=== PATIENT | male | born 1970 | race Hispanic/Latino ===

== ENCOUNTER 2020-01-29 14:27 | Inpatient (IN) | payer SELFPAY ==
[2020-01-29 15:12] LABS: Absolute Lymphocytes (CBC) 1.6 K/uL (0.7-4.9); Basophils % 0.4 % (0-1.3); Hematocrit 49.8 % (39.6-49.0); Lymphocytes % 10.1 % (15.3-44.8); MPV 8.7 fL (7.6-11.3); RBC Red Blood Cell Count 5.85 M/uL (4.33-5.43)
[2020-01-29] MEDS ORDERED: ONDANSETRON 4 MG/2 ML VIAL ONE ×2 (15:17→19:24)
[2020-01-29] MEDS ORDERED: MORPHINE 2 MG/ML SYR ONE (15:17)
[2020-01-29] MEDS ORDERED: NA CHLORIDE 0.9% 1,000 ML ONE (15:17)
[2020-01-29 15:26] LABS: ALT/SGPT 34 U/L (12-78); AST/SGOT 11 U/L (15-37); Albumin 3.8 g/dL (3.4-5.0); Alkaline Phosphatase 102 U/L (45-117); BUN Blood Urea Nitrogen 14 mg/dL (7-18); Bicarbonate 26 mmol/L (21-32); Bilirubin Direct 0.3 mg/dL (0-0.2); Bilirubin Total 1.2 mg/dL (0.2-1.0); Glucose Level 123 mg/dL (74-106); Lipase 49 U/L (73-393); Potassium 3.6 mmol/L (3.5-5.1); Sodium Level 137 mmol/L (136-145)
--- NOTE | 2020-01-29 15:56 | RAD REPORT ---
EXAM DESCRIPTION: RAD - Chest Single View - 01/29/2020 3:05 pm CLINICAL HISTORY: ABDOMINAL DISTENTION Chest pain. COMPARISON: No comparisons FINDINGS: Portable technique limits examination quality. The lungs are grossly clear. The heart is normal in size. No displaced fractures. IMPRESSION: No acute intrathoracic process suspected.
--- NOTE | 2020-01-29 16:06 | RAD REPORT ---
EXAM DESCRIPTION: CTAbdomen Pelvis W Contrast - 01/29/2020 3:44 pm CLINICAL HISTORY: Abdominal pain. ABD PAIN COMPARISON: No comparisons TECHNIQUE: Biphasic CT imaging of the abdomen and pelvis was performed with 100 ml non-ionic IV cont rast. All CT scans are performed using dose optimization technique as appropriate and may include automated exposure control or mA/KV adjustment according to patient size. FINDINGS: The lung bases are clear. The liver, spleen, pancreas, adrenal glands and kidneys are within normal limits. Multiple dilated fluid-filled small bowel loops are present in the abdomen. Clearly defined appendix is not seen. There is a tubular like structure containing air in the right lower quadrant with surro unding inflammatory changes. Assessment is somewhat limited by the lack of oral contrast material. No evidence of significant lymphadenopathy. No suspicious bony findings. IMPRESSION: Inflammatory changes in the right lower quadrant are seen suggesting perforated appendic itis with secondary ileus of small bowel loops. Recommend correlation with clinical exam findings in the right lower quadrant region.
--- NOTE | 2020-01-29 16:16 | ER ---
Nurse's Notes [facility] Name: Laureano Levin Age: 49 yrs Sex: Male : 1970 Arrival Date: 01/29/2020 Time: 14:32 Bed 18 Private MD: Diagnosis: Abdominal tenderness;Acute appendicitis with generalized peritonitis-perforated per CT;Ileus, unspecified Presentation: 01/28 14:40 Chief complaint: Patient states: Abdominal pain with N/V for 2 days. Sent by [address] H. Pylori test was positive. + dysuria. No fever. Coronavirus screen: Proceed with normal triage. Patient denies a cough. Patient denies shortness of breath or difficulty breathing. Patient denies measured and/or subjective temperature greater than 100.4F prior to today's visit. Patient denies travel on a cruise ship or to a country the [facility] [place]NOTE 2[place] currently lists as an affected area. Patient denies contact with known and/or suspected case of COVID-19. Ebola Screen: Patient denies travel to an Ebola-affected area in the 21 days before illness onset. Initial Sepsis Screen: Does the patient meet any 2 criteria? No. Patient's initial sepsis screen is negative. Does the patient have a suspected source of infection? No. Patient's initial sepsis screen is negative. Risk Assessment: Do you want to hurt yourself or someone else? Patient reports no desire to harm self or others. Onset of symptoms was January 28, 2020. 14:40 Method Of Arrival: Ambulatory [facility] 14:40 Acuity: MARIA R 3 ll1 Historical: - Allergies: 14:41 No Known Allergies; 1 - PMHx: 14:41 None; 1 - PSHx: 14:41 None; 1 - Social history:: Smoking status: Patient/guardian denies using tobacco, the patient reports quitting approximately 10 years ago, Patient/guardian denies using alcohol, the patient reports quitting approximately [address], [address] drugs. - Family history:: not pertinent. Screenin:08 Abuse screen: Denies threats or abuse. Nutritional screening: No deficits noted. Tuberculosis screening: No symptoms or risk factors identified. Fall Risk None identified. Assessment: 15:00 General: Appears in no apparent distress. Behavior is calm, cooperative. Pain: Complains of pain in abdomen Pain does not radiate. Pain Quality of pain is described as tender, Pain began 1 day ago. Is continuous, Alleviated by nothing. Neuro: Level of Consciousness is awake, Oriented to person, place, time, situation. Cardiovascular: Heart tones S1 S2 present Capillary refill < 3 seconds Patient's skin is warm and dry. Respiratory: Airway is patent Respiratory effort is even, unlabored, Respiratory pattern is regular, symmetrical, Breath sounds are clear bilaterally. GI: Bowel sounds present X 4 quads. Abdomen is tender to palpation X 4 quads. Reports nausea, vomiting. : No signs and/or symptoms were reported regarding the genitourinary system. EENT: No signs and/or symptoms were reported regarding the EENT system. Derm: No signs and/or symptoms reported regarding the dermatologic system. Musculoskeletal: No signs and/or symptoms reported regarding the musculoskeletal system. 15:52 Reassessment: Returned from CT. 16:00 Reassessment: Pt lying in bed resting at this time awaiting results from radiology and lab. No needs voiced at this time. 16:40 Reassessment: Dr Rodriguez in room visiting Pt and explaining procedure. 17:20 Reassessment: RN in room explaining procedure and having pt sign consent. Report given ah to OR nurse and pt being admitted to OR. Vital Signs: 14:40 BP 134 / 86; Pulse 89; Resp 18; Temp 98.3; Pulse Ox 97% ; Pain 6/10; ll1 15:00 BP 121 / 78; Pulse 93; Resp 18; Pulse Ox 97% ; ah 15:30 BP 122 / 78; Pulse 81; Resp 18; Pulse Ox 98% ; ah 17:04 BP 118 / 81; Pulse 88; Resp 17; Temp 99.2; Pulse Ox 98% ; ah ED Course: 14:32 Patient arrived in ED. mr 14:32 Berny Molina MD is Attending Physician. [facility] 14:41 Triage completed. ll1 14:42 Arm band placed on Patient placed in an exam room, on a stretcher. ll1 15:00 Initial lab(s) drawn, by la, sent to lab. X-ray(s) taken. Inserted saline lock: 20 jp3 gauge in right antecubital area, using aseptic technique. Blood collected. Patient maintains SpO2 saturation greater than 95% on room air. 15:06 Chest Single View XRAY In Process Unspecified. EDMS 15:06 Merissa Parson, RN is Primary Nurse. 15:[address] via stretcher. 15:45 CT Abd/Pelvis - IV Contrast Only In Process Unspecified. EDNE 16:14 Rafa Yuen MD is Hospitalizing Provider. [facility] 16:15 Patient has correct armband on for positive identification. Placed in gown. Bed in low ah position. Call light in reach. 16:15 Patient admitted, IV remains in place. 16:36 Ruth Lorenz MD is Hospitalizing Provider. [facility] 22:49 No provider procedures requiring assistance completed. Administered Medications: 15:15 Drug: NS 0.9% 1000 ml Route: IV; Rate: 1 bolus; Site: right antecubital; 16:15 Follow up: Response: No adverse reaction; IV Status: Completed infusion 15:15 Drug: morphine 2 mg Route: IVP; Site: right antecubital; ah 17:22 Follow up: Response: No adverse reaction 15:15 Drug: Zofran (Ondansetron) 4 mg Route: IVP; Site: right antecubital; 17:21 Follow up: Response: No adverse reaction 16:54 Drug: Zosyn 3.375 grams Route: IVPB; Infused Over: 60 mins; Site: right antecubital; 17:21 Follow up: Response: No adverse reaction; IV Status: Infusion continued upon transfer Outcome: 16:15 Decision to Hospitalize by Provider. [facility] 16:15 Admitted to OR accompanied by nurse, via stretcher, with chart. 16:15 Condition: stable 16:15 Instructed on the need for transfer. 17:28 Patient left the ED. Signatures: Dispatcher [employer] EDNE Berny Molina MD MD cha Rivera, Mary mr Bettina Watson RN RN Philipp Posada jp3 Merissa Parson, RN RN Cony Guaman RN RN ll1
--- NOTE | 2020-01-29 16:16 | EDPHYS ---
Physician Documentation [facility] Name: Laureano Levin Age: 49 yrs Sex: Male : 1970 Arrival Date: 01/29/2020 Time: 14:32 Bed 18 Private MD: JENISE Physician Berny Molina HPI: 01/28 14:52 This 49 yrs old Male presents to ER via Ambulatory with complaints of laura Abdominal Pain. 14:52 The patient presents with abdominal pain in the upper abdomen, in the lower abdomen, laura abdominal distention in the upper abdomen, in the lower abdomen. Onset: The symptoms/episode began/occurred 1 day(s) ago. The symptoms do not radiate. Associated signs and symptoms: Pertinent positives: diarrhea. The symptoms are described as constant. Modifying factors: The symptoms are alleviated by nothing, the symptoms are aggravated by nothing. Severity of pain: At its worst the pain was moderate in the emergency department the pain is actually worse moderately. The patient has not experienced similar symptoms in the past. Historical: - Allergies: 14:41 No Known Allergies; ll1 - PMHx: 14:41 None; ll1 - PSHx: 14:41 None; ll1 - Social history:: Smoking status: Patient/guardian denies using tobacco, the patient reports quitting approximately 10 years ago, Patient/guardian denies using alcohol, the patient reports quitting approximately [address], [address] drugs. - Family history:: not pertinent. ROS: 14:52 Constitutional: Negative for fever, chills, and weight loss, Eyes: Negative for injury, laura pain, redness, and discharge, ENT: Negative for injury, pain, and discharge, Neck: Negative for injury, pain, and swelling, Cardiovascular: Negative for chest pain, palpitations, and edema, Respiratory: Negative for shortness of breath, cough, wheezing, and pleuritic chest pain, Back: Negative for injury and pain, : Negative for injury, bleeding, discharge, and swelling, MS/Extremity: Negative for injury and deformity, Skin: Negative for injury, rash, and discoloration, Neuro: Negative for headache, weakness, numbness, tingling, and seizure, Psych: Negative for depression, anxiety, suicide ideation, homicidal ideation, and hallucinations, Allergy/Immunology: Negative for hives, rash, and allergies, Endocrine: Negative for neck swelling, polydipsia, polyuria, polyphagia, and marked weight changes, Hematologic/Lymphatic: Negative for swollen nodes, abnormal bleeding, and unusual bruising. 14:52 Abdomen/GI: Positive for abdominal pain, diarrhea, of the right upper quadrant, left upper quadrant, right lower quadrant and left lower quadrant. Exam: 14:52 Constitutional: This is a well developed, well nourished patient who is awake, alert, laura and in no acute distress. Head/Face: Normocephalic, atraumatic. Eyes: Pupils equal round and reactive to light, extra-ocular motions intact. Lids and lashes normal. Conjunctiva and sclera are non-icteric and not injected. Cornea within normal limits. Periorbital areas with no swelling, redness, or edema. ENT: Nares patent. No nasal discharge, no septal abnormalities noted. Tympanic membranes are normal and external auditory canals are clear. Oropharynx with no redness, swelling, or masses, exudates, or evidence of obstruction, uvula midline. Mucous membranes moist. Neck: Trachea midline, no thyromegaly or masses palpated, and no cervical lymphadenopathy. Supple, full range of motion without nuchal rigidity, or vertebral point tenderness. No Meningismus. Chest/axilla: Normal chest wall appearance and motion. Nontender with no deformity. No lesions are appreciated. Cardiovascular: Regular rate and rhythm with a normal S1 and S2. No gallops, murmurs, or rubs. Normal PMI, no JVD. No pulse deficits. Respiratory: Lungs have equal breath sounds bilaterally, clear to auscultation and percussion. No rales, rhonchi or wheezes noted. No increased work of breathing, no retractions or nasal flaring. Back: No spinal tenderness. No costovertebral tenderness. Full range of motion. Male : Normal genitalia with no discharge or lesions. Skin: Warm, dry with normal turgor. Normal color with no rashes, no lesions, and no evidence of cellulitis. MS/ Extremity: Pulses equal, no cyanosis. Neurovascular intact. Full, normal range of motion. Neuro: Awake and alert, GCS 15, oriented to person, place, time, and situation. Cranial nerves II-XII grossly intact. Motor strength 5/5 in all extremities. Sensory grossly intact. Cerebellar exam normal. Normal gait. Psych: Awake, alert, with orientation to person, place and time. Behavior, mood, and affect are within normal limits. 14:52 Abdomen/GI: Inspection: abdomen appears normal, Bowel sounds: normal, Palpation: moderate abdominal tenderness, in all quadrants, Liver: no appreciated palpable abnormalities, Hernia: not appreciated. Vital Signs: 14:40 BP 134 / 86; Pulse 89; Resp 18; Temp 98.3; Pulse Ox 97% ; Pain 6/10; ll1 15:00 BP 121 / 78; Pulse 93; Resp 18; Pulse Ox 97% ; ah 15:30 BP 122 / 78; Pulse 81; Resp 18; Pulse Ox 98% ; ah 17:04 BP 118 / 81; Pulse 88; Resp 17; Temp 99.2; Pulse Ox 98% ; ah MDM: 14:34 Patient medically screened. [facility] 14:56 Data reviewed: vital signs, nurses notes, lab test result(s), EKG, radiologic studies, laura CT scan, plain films. 15:17 Differential diagnosis: appendicitis, bowel obstruction, diverticulitis, non-specific laura abd pain, pancreatitis, Perf. Duodenal Ulcer, Peritonitis. Data interpreted: satellite project site monitor: rate is 89 beats/min. Test interpretation: by ED physician or midlevel provider: ECG, plain radiologic studies, ct abd pelvis. Counseling: I had a detailed discussion with the patient and/or guardian regarding: the historical points, exam findings, and any diagnostic results supporting the discharge/admit diagnosis, lab results, radiology results. ED course: pt presented abd pain, acute abdomen, positive guarding , suspicios for appedicitis. 01/28 14:50 Order name: Basic Metabolic Panel; Complete Time: 15: [facility] 01/28 14:50 Order name: CBC with Diff; Complete Time: 15: laura 01/28 14:50 Order name: Creatinine for Radiology; Complete Time: 15:26 [facility] 01/28 14:50 Order name: Hepatic Function; Complete Time: 15: laura 01/28 14:50 Order name: Lipase; Complete Time: 15: [facility] 01/28 14:50 Order name: Chest Single View XRAY; Complete Time: 15:58 01/28 14:50 Order name: IV Saline Lock; Complete Time: 15:01/28 14:50 Order name: Labs collected and sent; Complete Time: 15:01 [facility] 01/28 14:50 Order name: EKG; Complete Time: 14:51 [facility] 01/28 14:50 Order name: CT Abd/Pelvis - IV Contrast Only; Complete Time: 16:40 [facility] 01/28 14:50 Order name: EKG - Nurse/Tech; Complete Time: 17:22 [facility] 01/28 16:13 Order name: NPO; Complete Time: 17:22 [facility] Administered Medications: 15:15 Drug: NS 0.9% 1000 ml Route: IV; Rate: 1 bolus; Site: right antecubital; 16:15 Follow up: Response: No adverse reaction; IV Status: Completed infusion 15:15 Drug: morphine 2 mg Route: IVP; Site: right antecubital; 17:22 Follow up: Response: No adverse reaction 15:15 Drug: Zofran (Ondansetron) 4 mg Route: IVP; Site: right antecubital; 17:21 Follow up: Response: No adverse reaction 16:54 Drug: Zosyn 3.375 grams Route: IVPB; Infused Over: 60 mins; Site: right antecubital; 17:21 Follow up: Response: No adverse reaction; IV Status: Infusion continued upon transfer Disposition: 01/29/20 16:15 Hospitalization ordered by Ruth Lorenz for Observation. Preliminary diagnosis are Abdominal tenderness, Acute appendicitis with generalized peritonitis - perforated per CT, Ileus, unspecified. - Bed requested for Telemetry/MedSurg (observation). - Status is Observation. - Condition is Stable. - Problem is new. - Symptoms have improved. Signatures: Dispatcher [employer] EDVT Berny Molina MD MD cha Baxter, Heather RN RN Merissa Parson, RN RN Cony Guaman, RN RN ll1 Corrections: (The following items were deleted from the chart) 16:36 16:15 Hospitalization Ordered by Rafa Yuen MD for Observation. Preliminary diagnosis laura is Abdominal tenderness; Acute appendicitis with generalized peritonitis - perforated per CT; Ileus, unspecified. Bed requested for Telemetry/MedSurg (observation). Status is Observation. Condition is Stable. Problem is new. Symptoms have improved. [facility] 17:28 16:36 01/29/2020 16:15 Hospitalization Ordered by Ruth Lorenz MD for Observation. Preliminary diagnosis is Abdominal tenderness; Acute appendicitis with generalized peritonitis - perforated per CT; Ileus, unspecified. Bed requested for Telemetry/MedSurg (observation). Status is Observation. Condition is Stable. Problem is new. Symptoms have improved. laura
[2020-01-29] MEDS ORDERED: PIPER/TAZO/NS 3.375gm 3.375 GM/100 ML BAG ONE (16:48)
[2020-01-29] MEDS ORDERED: BUPIVACA 0.25%/EPI 0.0005%/PF 30 ML VIAL ONE (16:59)
[2020-01-29] MEDS ORDERED: Ringers Lactate 1,000 ML IV ONE (17:39)
[2020-01-29] MEDS ORDERED: SUCCINYLCHOLINE 20 MG/ML (10 ML) IV ONE (17:49)
[2020-01-29] MEDS ORDERED: MIDAZOLAM HCL 2 MG/2 ML INJ ONE (17:51)
[2020-01-29] MEDS ORDERED: propofoL 200 MG/20 ML VIAL IV ONE (17:51)
[2020-01-29] MEDS ORDERED: FENTANYL CITR 100 MCG/2 ML ONE (17:51)
[2020-01-29] MEDS ORDERED: ROCURONIUM 50 MG/5 ML VIAL IV ONE (17:51)
[2020-01-29] MEDS: PIPER/TAZO/NS 3.375gm 3.375 GM/100 ML BAG IVPB SCH (18:04)
[2020-01-29] MEDS ORDERED: ALBUTEROL 2.5 MG/3 ML NEB SOL NEB PRN (18:25)
[2020-01-29] MEDS ORDERED: HYDRALAZINE HCL 20 MG/ML VIAL IV PRN (18:25)
--- NOTE | 2020-01-29 18:25 | P.HP ---
Certification for Inpatient With expected LOS: >2 Midnights Patient will require the following post-hospital care: None Practitioner: I am a practitioner with admitting privileges, knowledge of patient current condition, hospital course, and medical plan of care. Services: Services provided to patient in accordance with Admission requirements found in Title 42 Section 412.3 of the Code of Federal Regulations Patient History Date of Service: 01/29/20 Reason for admission: Abdominal pain History of Present Illness: 49-year-old speaking male with past medical history of hypertension, diabetes mellitus, and hyperlipidemia, admitted because of 3 day history of intermittent abdominal pain, worsening since the last 2 days, associated with nausea but no vomiting or loss of appetite. Patient presented to the ED be today because of persistent pain. On presentation he had a CT scan of the abdomen done with finding of perforated appendicitis. Surgery has been consult ed. Patient is being taking to the OR. Patient was seen in the ED and the presence of surgery via nurse cephalometric technician. He denies every other symptoms. He denies any fever or chills. Allergies No Known Allergies Allergy (Unverified 01/29/20 17:59) Home medications list reviewed: No - Past Medical/Surgical History Has patient received pneumonia vaccine in the past: No Diabetic: Yes -: Hypertension -: Diabetes mellitus - Family History Family History: Reviewed- Non-Contributory - Social History Smoking Status: Unknown if ever smoked Counseled patient to stop smoking for: less than 10 minutes Alcohol use: No CD- Drugs: No Caffeine use: No Place of Residence: Home Review of Systems 10-point ROS is otherwise unremarkable Physical Examination - Physical Exam General: Alert, In no apparent distress, Oriented x3 HEENT: Atraumatic, Normocephalic, PERRLA Neck: Supple, 2+ carotid pulse no bruit, JVD not distended Respiratory: Clear to auscultation bilaterally, Normal air movement Cardiovascular: Normal pulses, Regular rate/rhythm, Normal S1 S2 Capillary refill: <2 Seconds Gastrointestinal: Non-distended, W/out hepatosplenomegaly, Tenderness, Rebound Musculoskeletal: No clubbing, No swelling Neurological: Normal speech, Normal strength at 5/5 x4 extr, Normal tone - Studies Laboratory Data (last 24 hrs) 01/29/20 14:58: Creatinine 0.75 01/29/20 14:58: WBC 15.7 H, Hgb 16.4, Hct 49.8 H, Plt Count 260 01/29/20 14:58: Sodium 137, Potassium 3.6, BUN 14, Creatinine 0.76, Glucose 123 H, Total Bilirubin 1.2 H, AST 11 L, ALT 34, Alkaline Phosphatase 102, Lipase 49 L Imagings Data: CTAbdomen Pelvis W Contrast - 01/29/2020 3:44 pm CLINICAL HISTORY: Abdominal pain. ABD PAIN COMPARISON: No comparisons TECHNIQUE: Biphasic CT imaging of the abdomen and pelvis was performed with 100 ml non-ionic IV contrast. All CT scans are performed using dose optimization technique as appropriate and may include automated exposure control or mA/KV adjustment according to patient size. FINDINGS: The lung bases are clear. The liver, spleen, pancreas, adrenal glands and kidneys are within normal limits. Multiple dilated fluid-filled small bowel loops are present in the abdomen. Clearly defined appendix is not seen. There is a tubular like structure containing air in the right lower quadrant with surrounding inflammatory changes. Assessment is somewhat limited by the lack of oral contrast material. No evidence of significant lymphadenopathy. No suspicious bony findings. IMPRESSION: Inflammatory changes in the right lower quadrant are seen suggesting perforated appendicitis with secondary ileus of small bowel loops. Recommend correlation with clinical exam findings in the right lower quadrant region Assessment and Plan - Problems (Diagnosis) (1) Acute perforated appendicitis Current Visit: Yes Status: Acute (2) Hypertension Current Visit: Yes Status: Acute (3) Diabetes mellitus Current Visit: Yes Status: Acute - Advance Directives Does patient have a Living Will: No Does patient have a Durable POA for Healthcare: No Physician Review: Patient Assessed, Agree with Above Assessment and Plan Physician Review Additional Text: Perforated appendicitis-follow emergency surgical appendectomy -follow planned abdominal washout post appendectomy -surgery discuss with. -will start empirical antibiotics with Zosyn -gentle IV fluid hydration -obtain blood culture Hypertension-will do IV hydralazine p.r.n., resume home meds when able to start p.o. Diabetes mellitus-will do Accu-Cheks Q 6 for now -start gentle IV fluid with lactated Ringer's to D5 LR if hypoglycemia -do insulin sliding scale next DVT prophylaxis subcutaneous Lovenox post surgery Advanced directive- discussed patient is full code Time Spent Managing Pts Care (In Minutes): 65
[2020-01-29] MEDS ORDERED: NEOSTIGMINE 1 MG/ML -5 ML ONE (18:42)
[2020-01-29] MEDS ORDERED: GLYCOPYRROLATE 0.2 MG/ML SYR ONE (18:42)
--- NOTE | 2020-01-29 18:49 | P.OP ---
Preoperative diagnosis: Perforated Appendicitis Postoperative diagnosis: Perforated Appendicitis Primary procedure: Laparoscopic Appendectomy Anesthesia: GETA + Local Estimated blood loss: < 10cc Specimen: Vermiform Appendix Findings: Microperforated Appendicitis Complications: None Transferred to: Recovery Room Condition: Good
[2020-01-29] MEDS: HYDROMORPHONE HCL 1 MG/ML INJ ONE ×2 (19:23→19:28)
[2020-01-29] MEDS ORDERED: KETOROLAC 30 MG/ML INJ ONE (19:24)
[2020-01-29] MEDS ORDERED: PROMETHAZINE INJ 25 MG/ML AMP ONE (19:29)
[2020-01-29] MEDS: D5 0.45 NS 1,000 ML IV SCH (20:25)
[2020-01-29] MEDS: ENOXAPARIN 40 MG/0.4 ML SQ SCH (21:00)
[2020-01-29] MEDS: INSULIN -REGULAR HUMAN 50 UNIT/0.5 ML ML SQ SCH (21:00)
--- NOTE | 2020-01-29 21:07 | CON ---
Date of Consultation: 01/29/2020 Brief History Of Present Illness: Patient is a 49-year-old male who presents with periumbil ical pain beginning approximately yesterday, now localized to the right lower quadrant. He has had s ome nausea, no vomiting. The pain got significantly worse over the course of the day. He has not moreno d similar episodes before in the past. No sick contacts. No recent travel. No new food exposures t hat he is aware. Past Medical History: Significant for back pain. Past Surgical History: Denies. Allergies: NO KNOWN DRUG ALLERGIES. Home Medications: Include diclofenac. Review of Systems: Ten-point review of systems other than HPI denies. Physical Examination: Vital Signs: At time of my examination, his vital signs were blood pressure 134/86, pulse 89, respir atory rate 18, temperature 98.3, pulse ox 97% on room air. General: He is awake and alert and in no acute distress, but he appears mildly uncomfortable. HEENT: Otherwise normocephalic. His sclerae are anicteric. His mucous membranes are moist. Oropha rynx clear. Neck: Supple. No JVD. Chest: Normal expansion and excursion. Cardiovascular: Regular rate and rhythm. Pulmonary: Clear to auscultation bilaterally. Abdomen: Soft with positive right lower quadrant focal peritonitis at [place] point. Positive rebo und. Positive guarding. Findings consistent with an acute appendicitis. Extremities: No clubbing, cyanosis, edema. Skin: Warm and dry. Laboratory Data: Revealed white blood cell count of 15.7, hemoglobin of 16.4, hematocrit of 49.8, ne utrophils 78%, platelet count 260. His chemistry showed sodium 137, potassium 3.6, chloride 102, car bon dioxide 26, BUN 14, creatinine 0.7, glucose 123, calcium is 8.9, total bilirubin 1.2, direct comp onent 0.3, AST is 11, ALT 34, alkaline phosphatase is 102, lipase is 49. He had a CT scan performed of the abdomen and pelvis, which was officially read as inflammatory rivero es in the right lower quadrant seen suggesting perforated appendicitis with secondary ileus of the sm all bowel. Assessment And Plan: This is a 49-year-old male who comes in with signs and symptoms consistent with perforated appendicitis. 1.IV fluid hydration. 2.Antibiotic coverage with Zosyn 3.375 IV q.6. 3.I have explained the risks, benefits, and alternatives of laparoscopy, possible appendectomy inclu ding, but not limited to bleeding, infection, damage to surrounding tissues, need for further operati on and procedures. Patient agrees to proceed as indicated. SREEKANTH/GEORGI Voice ID: [id number] Report ID: [id number]
[2020-01-29 22:16] VITALS: BMI 28.5
[2020-01-29] MEDS ORDERED: PIPERACIL/TAZO 3.375 GM VIAL IV ONE (23:55)
[2020-01-29] MEDS ORDERED: NA CHLORIDE 0.9% 100 ML ONE (23:58)
[2020-01-30] MEDS: ACETAMINOPHEN 325 MG TABLET PO PRN ×2 (01:48→13:48)
[2020-01-30] MEDS: MORPHINE 4 MG/ML SYR IV PRN ×3 (01:56→21:46)
--- NOTE | 2020-01-30 04:24 | OP ---
Date of Procedure: 01/29/2020 Surgeon: aRfa Yuen MD, Preoperative Diagnosis: Perforated appendicitis. Postoperative Diagnosis: Perforated appendicitis. Procedure Performed: Laparoscopic appendectomy. Anesthesia: General endotracheal plus local with 0.5% Marcaine with epinephrine. Estimated Blood Loss: Less than 10 mL. Specimen: Vermiform appendix. Findings: Micro perforated appendicitis with no gross fecal spillage. There was murky fluid consist ent with a recent perforation and inflammatory changes in the right lower quadrant. The appendix was in the retrocecal position firmly adhered to the retroperitoneum on the lateral sidewall requiring m obilization. No additional injuries or pathologic findings were noted on inspection. Complications: None. Disposition: Transferred to the recovery room in good condition. Procedure In Detail: After informed consent was obtained, patient was brought to the operating room, prepped and draped in the usual sterile fashion. After adequate anesthesia was achieved, an infraum bilical area was anesthetized with 0.5% Marcaine, sharply incised. A 5 mm trocar was introduced in t he abdomen without evidence of complication, insufflation was obtained to 15 mmHg at this time. Ther e was no injury to vital structure upon entry of the abdomen. The intestines were generally dilated at this point consistent with an ileus due to the right lower quadrant inflammatory changes consisten t with perforated appendicitis. Two additional trocars were placed, 1 in the suprapubic position, 1 in the right lower quadrant. These were similarly anesthetized, sharply incised, a 5 mm trocar was i ntroduced in the abdomen without any evidence of complication. The umbilical trocar was then up-size d to a 12 mm under direct visualization without evidence of complication. The patient was positioned in the head down, right side up position. Ratcheted grasper was used to grasp the patient's cecum, which was found to be quite easily identified in the right lower quadrant following the tenia down to the appendix, was easy as well and the appendix was found to be stuck in the retrocecal position and firmly adhered to the retroperitoneal structures. After mobilization of the dilated loops of intest leticia using gentle traction, the appendix was grasped, elevated, and bluntly dissected off the posteri or aspect of the retroperitoneal structures. At this point, the LigaSure device was used to mobilize some of the mesoappendiceal structures and a mesoappendiceal window was created with the [place] re tractor at the base of the cecum and the appendiceal confluence. At this point, the Endo KING 35 blue load was fired across the base the appendix, good approximation of the tissues. The remainder of [facility] mesoappendix was taken down using the LigaSure device with good approximation of tissue. No additi onal hemostatic maneuvers were required. The appendix was then placed in an EndoCatch bag, removed t he umbilical trocar, re-insufflation obtained this time. The area was copiously irrigated multiple t imes with approximately 3 L of saline and all murky fluid was removed from the right lower quadrant, right upper quadrant, and in the pelvis. Some effluent and irrigant were left in the pelvis, but it was clear at this point. The patient was then positioned in neutral position. The trocars had no ev idence of bleeding. The umbilical trocar was removed. The umbilical trocar site was closed using a Praneeth-Kecia suture passer with a 0 Vicryl interrupted fashion with good approximation of tissues. The abdomen was then completely desufflated under direct visualization without evidence of complica tion. After patient was positioned in neutral position, all trocars were then removed. All skin inc isions were copiously irrigated and closed with a 4-0 Monocryl in a running fashion. Dermabond place d over top. Patient tolerated the procedure well without evidence of complication, transferred to [facility] PACU in good condition. All counts were correct at the end of the case. SREEKANTH/GEORGI Voice ID: [id number] Report ID: [id number]
[2020-01-30] MEDS ORDERED: NA CHLORIDE 0.9% 100 ML ONE (05:04)
[2020-01-30] MEDS: D5 0.45 NS 1,000 ML IV SCH ×2 (05:04→09:57)
[2020-01-30] MEDS: PIPER/TAZO/NS 3.375gm 3.375 GM/100 ML BAG IVPB SCH ×4 (05:05→16:21)
[2020-01-30 06:30] LABS: Absolute Lymphocytes (CBC) 1.7 K/uL (0.7-4.9); Basophils % 0.2 % (0-1.3); Hematocrit 44.4 % (39.6-49.0); Lymphocytes % 16.8 % (15.3-44.8); RBC Red Blood Cell Count 5.16 M/uL (4.33-5.43)
[2020-01-30 06:52] LABS: ALT/SGPT 26 U/L (12-78); AST/SGOT 8 U/L (15-37); Alkaline Phosphatase 92 U/L (45-117); BUN Blood Urea Nitrogen 10 mg/dL (7-18); Bicarbonate 28 mmol/L (21-32); Bilirubin Direct 0.4 mg/dL (0-0.2); Bilirubin Total 1.4 mg/dL (0.2-1.0); Glucose Level 126 mg/dL (74-106); Lipase 44 U/L (73-393); Potassium 3.8 mmol/L (3.5-5.1); Protein, Total 6.7 g/dL (6.4-8.2); Sodium Level 138 mmol/L (136-145)
[2020-01-30] MEDS: INSULIN -REGULAR HUMAN 50 UNIT/0.5 ML ML SQ SCH ×4 (07:30→21:00)
--- NOTE | 2020-01-30 09:49 | EKG ---
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
[2020-01-30] MEDS: ENOXAPARIN 40 MG/0.4 ML SQ SCH (09:52)
--- NOTE | 2020-01-30 10:53 | P.PN ---
Subjective Date of Service: 01/30/20 (Hospitalist) Chief Complaint: Laparoscopic appendectomy Subjective: Improving (Patient is improving borderline temperature status post perforated appendix) Review of Systems Unremarkable Gastrointestinal: Abdominal Pain Physical Examination - Vital Signs Temperature: 99.6 F Blood Pressure: 110/72 Pulse: 101 Respirations: 20 Pulse Ox (%): 94 - Physical Exam General: Alert, Oriented x3 Respiratory: Clear to auscultation bilaterally Cardiovascular: No edema, Regular rate/rhythm Gastrointestinal: Hypoactive, Tenderness (Mild tenderness) - Studies Laboratory Data (last 24 hrs) 01/29/20 14:58: Creatinine 0.75 01/29/20 14:58: WBC 15.7 H, Hgb 16.4, Hct 49.8 H, Plt Count 260 01/29/20 14:58: Sodium 137, Potassium 3.6, BUN 14, Creatinine 0.76, Glucose 123 H, Total Bilirubin 1.2 H, AST 11 L, ALT 34, Alkaline Phosphatase 102, Lipase 49 L Assessment & Plan - Problems (Diagnosis) (1) Acute perforated appendicitis Current Visit: Yes Status: Acute Plan: Patient is 49 years of age admitted with emergency appendectomy he is doing better white count is declining vital signs stable. Temperature is also d eclining currently on Zosyn he had a micro perforation of the appendix on Zosyn patient is a diabetic diet orders as the general surgery changed from D5 Dobhoff normal saline currently on clear liquids patient has a history of diabetes (2) Diabetes mellitus Current Visit: Yes Status: Acute Qualifiers: Diabetes mellitus type: type 2 Physician Review: Patient Assessed, Agree with Above Assessment and Plan
[2020-01-30] MEDS: NACHLORIDE 0.45% 1,000 ML IV SCH (12:08)
[2020-01-30] MEDS: ONDANSETRON 4 MG/2 ML VIAL IV PRN (21:46)
[2020-01-31] MEDS: NACHLORIDE 0.45% 1,000 ML IV SCH ×3 (00:20→12:37)
[2020-01-31] MEDS: PIPER/TAZO/NS 3.375gm 3.375 GM/100 ML BAG IVPB SCH ×3 (01:03→18:37)
[2020-01-31] MEDS: MORPHINE 4 MG/ML SYR IV PRN ×3 (04:17→16:19)
[2020-01-31] MEDS: INSULIN -REGULAR HUMAN 50 UNIT/0.5 ML ML SQ SCH ×4 (07:30→20:57)
[2020-01-31] MEDS ORDERED: METOPROLOL TARTRATE 5 MG/5 ML INJ IV ONE ×2 (08:06→11:16)
[2020-01-31] MEDS: ENOXAPARIN 40 MG/0.4 ML SQ SCH (08:22)
[2020-01-31 08:34] LABS: Absolute Lymphocytes (CBC) 1.3 K/uL (0.7-4.9); Basophils % 0.2 % (0-1.3); Hematocrit 45.1 % (39.6-49.0); Lymphocytes % 12.5 % (15.3-44.8); MPV 8.8 fL (7.6-11.3); RBC Red Blood Cell Count 5.29 M/uL (4.33-5.43)
--- NOTE | 2020-01-31 10:00 | P.PN ---
Subjective Date of Service: 01/31/20 Chief Complaint: Laparoscopic appendectomy SVT Patient is still complaining of of abdominal tenderness is developed SVT there is no prior history of SVT does not take any medications at home Review of Systems General: Weakness Gastrointestinal: Abdominal Pain Physical Examination - Vital Signs Temperature: 98.3 F Blood Pressure: 137/77 Pulse: 149 Respirations: 19 Pulse Ox (%): 95 - Physical Exam General: Alert, Moderate distress Neck: Supple Respiratory: Clear to auscultation bilaterally Cardiovascular: No edema Gastrointestinal: Tenderness (Generalized abdominal tenderness) Assessment & Plan - Problems (Diagnosis) (1) Acute perforated appendicitis Current Visit: Yes Status: Acute Plan: Patient still has some mild tenderness white count is declining on antibiotics patient has some fever yesterday (2) Diabetes mellitus Current Visit: Yes Status: Acute Qualifiers: Diabetes mellitus type: type 2 (3) Sustained VT (ventricular tachycardia) Current Visit: Yes Status: Acute Plan: Patient developed SVT blood pressure is stable treat with some pain medications labs ordered when monitor possible discharge tomorrow the a test original surgery patient most likely has atrial flutter discuss with cardiology rate control use ella Cash in transfer to the ICU possible cardioversion anti coagulate Physician Review: Patient Assessed, Agree with Above Assessment and Plan
[2020-01-31 10:41] LABS: BUN Blood Urea Nitrogen 9 mg/dL (7-18); Bicarbonate 25 mmol/L (21-32); Glucose Level 110 mg/dL (74-106); Magnesium 2.2 mg/dL (1.8-2.4); Potassium 3.6 mmol/L (3.5-5.1); Sodium Level 137 mmol/L (136-145)
[2020-01-31] MEDS ORDERED: ADENOSINE 6 MG/ 2ML VIAL IV ONE ×2 (11:08→11:12)
[2020-01-31] MEDS ORDERED: ADENOSINE 6 MG/ 2ML VIAL IV STA (11:11)
[2020-01-31] MEDS: METOPROLOL TAR 25 MG TAB PO SCH ×2 (11:33→18:37)
[2020-01-31] MEDS: ONDANSETRON 4 MG/2 ML VIAL IV PRN (16:19)
[2020-01-31] MEDS ORDERED: ENOXAPARIN 100 MG/ML SYR SQ SCH (21:00)
[2020-02-01] MEDS: PIPER/TAZO/NS 3.375gm 3.375 GM/100 ML BAG IVPB SCH ×3 (00:58→17:06)
[2020-02-01] MEDS: METOPROLOL TARTRATE 5 MG/5 ML INJ IV PRN ×2 (00:59→08:29)
[2020-02-01] MEDS: ONDANSETRON 4 MG/2 ML VIAL IV PRN ×3 (04:14→17:14)
[2020-02-01] MEDS: METOPROLOL TAR 25 MG TAB PO SCH ×2 (05:14→18:00)
[2020-02-01 05:49] LABS: Absolute Lymphocytes (CBC) 1.2 K/uL (0.7-4.9); Basophils % 0.2 % (0-1.3); Hematocrit 43.9 % (39.6-49.0); MPV 8.9 fL (7.6-11.3); RBC Red Blood Cell Count 5.15 M/uL (4.33-5.43)
[2020-02-01 05:54] LABS: BUN Blood Urea Nitrogen 14 mg/dL (7-18); Bicarbonate 28 mmol/L (21-32); Glucose Level 134 mg/dL (74-106); Magnesium 2.2 mg/dL (1.8-2.4); Potassium 3.5 mmol/L (3.5-5.1); Sodium Level 136 mmol/L (136-145)
--- NOTE | 2020-02-01 07:03 | P.PN ---
Date of Service: 02/01/20 Nursing staff report patient had a coffee-ground emesis which is gastric occult positive. Imp: GI bleed. Will start IV Protonix. Hold Lovenox GI consult
[2020-02-01] MEDS ORDERED: SODIUM CHLORIDE 0.9% 10ML INJ IV PRN (07:05)
[2020-02-01] MEDS: INSULIN -REGULAR HUMAN 50 UNIT/0.5 ML ML SQ SCH ×4 (07:30→20:32)
[2020-02-01] MEDS: NACHLORIDE 0.45% 1,000 ML IV SCH ×2 (08:09→13:47)
[2020-02-01] MEDS: PANTOPRAZOLE 40 MG INJ IVP SCH ×2 (08:34→20:31)
--- NOTE | 2020-02-01 08:59 | P.PN ---
Subjective Date of Service: 02/01/20 (Hospitalist) Chief Complaint: Nausea vomiting abdominal discomfort Patient developed an SVT yesterday was transferred to the ICU discuss with cardiology he reverted back to normal sinus rhythm with IV adenosine was transferred back to the floor currently he has some coffee-ground emesis to this morning is complaining of nausea and vomiting some abdominal discomfort Review of Systems Gastrointestinal: As per HPI Physical Examination - Vital Signs Temperature: 98.9 F Blood Pressure: 119/89 Pulse: 137 Respirations: 20 Pulse Ox (%): 93 - Physical Exam General: Alert, Oriented x3, Moderate distress Respiratory: Clear to auscultation bilaterally Cardiovascular: No edema Gastrointestinal: Tenderness (Generalized abdominal tenderness) Assessment & Plan - Problems (Diagnosis) (1) Acute perforated appendicitis Current Visit: Yes Status: Acute Plan: Patient has been complaining of some nausea vomiting discuss with general surgery he may have some postoperative ileus will plan to do a KUB white count is declining lactic acid continue with antibiotics doubt sepsis and p.o. diet labs he appears to have a small-bowel obstruction NG tube inserted seen by Cardiology IV fluids abdominal decompression (2) Diabetes mellitus Current Visit: Yes Status: Acute Qualifiers: Diabetes mellitus type: type 2 (3) Sustained VT (ventricular tachycardia) Current Visit: Yes Status: Acute Plan: Patient developed SVT blood pressure is stable treat with some pain medications labs ordered when monitor possible discharge tomorrow the a test original surgery patient most likely has atrial flutter discuss with cardiology rate control use ella Shailesh in transfer to the ICU possible cardioversion anti coagulate Physician Review: Patient Assessed, Agree with Above Assessment and Plan Physician Review Additional Text: Perforated appendicitis-follow emergency surgical appendectomy -follow planned abdominal washout post appendectomy -surgery discuss with. -will start empirical antibiotics with Zosyn -gentle IV fluid hydration -obtain blood culture Hypertension-will do IV hydralazine p.r.n., resume home meds when able to start p.o. Diabetes mellitus-will do Accu-Cheks Q 6 for now -start gentle IV fluid with lactated Ringer's to D5 LR if hypoglycemia -do insulin sliding scale next DVT prophylaxis subcutaneous Lovenox post surgery Advanced directive- discussed patient is full code
[2020-02-01] MEDS: ENOXAPARIN 40 MG/0.4 ML SQ SCH (09:00)
[2020-02-01] MEDS ORDERED: ADENOSINE 6 MG/ 2ML VIAL IV ONE (12:00)
[2020-02-01] MEDS ORDERED: NA CHLORIDE 0.9% 500 ML ONE (12:11)
--- NOTE | 2020-02-01 12:22 | RAD REPORT ---
EXAM DESCRIPTION: RAD - Abdomen 1 View (KUB) - 02/01/2020 10:32 am CLINICAL HISTORY: possible ileus Pain COMPARISON: Abdomen Pelvis W Contrast dated 01/29/2020 FINDINGS: Multiple dilated and organized small bowel loops are seen in the central abdomen. There is a notable lack of air in the colon. This has the appearance of a mechanical small-bowel obstruction. No free intraperitoneal air seen. No significant bony findings. IMPRESSION: Developing mechanical small-bowel obstruction suspected.
[2020-02-01 14:52] LABS: Protime INR 1.18
--- NOTE | 2020-02-01 14:57 | P.CNS ---
Date of Consult: 02/01/20 PC: I was asked to see this postoperative patient in regards to abdominal pain and distention. HPC: Patient and her daughter and laparoscopic appendectomy. At the time of surgeon's found have a micro perforation. The patient was irrigated with copious amounts saline solution until the effluent was clear. He is been on antibiotics since then. He has developed this abdominal distension with increasing pain in discomfort. This is in addition to runs of SVT which had now been corrected. The patient's chart, allergies, and hospital course has been reviewed. His initial CT scan and his abdominal films from today as well as his labs were seen. O/E patient at the current time is awake alert vital signs are stable HEENT: Nasogastric tube in place, had 1.5 L of dark green effluent out through the nasogastric tube Chest: Chest movement is equal bilaterally ABD: Abdomen is still mildly distended and tympanic however no guarding or rebound surgical so incisions intact LOCO: Intact DATA: Plain film of abdomen shows appearance of mechanical versus ileus. IMPRESSION: This postoperative patient from a ruptured appendix developed what appears to be a postoperative ileus versus mechanical obstruction. The nasogastric tube has been placed with much relief to the patient. He says he feels fine at the moment. He just wants the tube out of his nose. PLAN: Continue IV fluids, continue IV antibiotics. NG to me will be reassess in the a.m.. Does not require any acute surgical intervention. I will relay this to the surgeon of record. Thank you
[2020-02-01] MEDS ORDERED: GLUCAGON 1 MG/VIAL IM PRN (22:07)
[2020-02-01] MEDS ORDERED: D50W 25 GM/50 ML SYRINGE/VIAL IV PRN (22:07)
[2020-02-02] MEDS: PIPER/TAZO/NS 3.375gm 3.375 GM/100 ML BAG IVPB SCH ×3 (00:14→16:02)
[2020-02-02] MEDS: METOPROLOL TARTRATE 5 MG/5 ML INJ IV PRN (00:14)
[2020-02-02 05:00] LABS: Absolute Lymphocytes (CBC) 1.3 K/uL (0.7-4.9); Basophils % 0.2 % (0-1.3); Hematocrit 39.4 % (39.6-49.0); Lymphocytes % 28.7 % (15.3-44.8); MPV 8.4 fL (7.6-11.3); RBC Red Blood Cell Count 4.66 M/uL (4.33-5.43)
[2020-02-02 05:09] LABS: BUN Blood Urea Nitrogen 20 mg/dL (7-18); Bicarbonate 28 mmol/L (21-32); Glucose Level 116 mg/dL (74-106); Potassium 3.3 mmol/L (3.5-5.1); Sodium Level 139 mmol/L (136-145)
[2020-02-02] MEDS: INSULIN -REGULAR HUMAN 50 UNIT/0.5 ML ML SQ SCH ×4 (05:21→20:42)
[2020-02-02] MEDS: METOPROLOL TAR 25 MG TAB PO SCH ×2 (05:27→17:36)
[2020-02-02 07:28] LABS: Platelet Estimate ADEQ
[2020-02-02 07:29] LABS: Blood Morphology Comment NOT SEEN (NOT SEEN)
--- NOTE | 2020-02-02 08:50 | P.PN ---
Subjective Date of Service: 01/30/20 Chief Complaint: Nausea vomiting abdominal discomfort Subjective: Improving (Patient has some fever overnight, no nausea, emesis, continues to have abdominal pain, some distention, tolerated clears) Physical Examination - Vital Signs Temperature: 99.3 F Blood Pressure: 103/66 Pulse: 78 Respirations: 16 Pulse Ox (%): 95 - Physical Exam General: Alert, In no apparent distress, Cooperative Gastrointestinal: Other (soft, mild appropriate TTP, mild distention, incisions clean, no peritoneal signs) Assessment And Plan - Current Problems (Diagnosis) (1) Acute perforated appendicitis Current Visit: Yes Status: Acute Plan: - Serial Exams - Continue IV Zosyn - advance diet slowly, as patient had ileus appearance, and intra-abdominal contamination - ambulate with assist - lovenox - incentive spriometry Physician Review: Patient Assessed, Agree with Above Assessment and Plan Physician Review Additional Text: Perforated appendicitis-follow emergency surgical appendectomy -follow planned abdominal washout post appendectomy -surgery discuss with. -will start empirical antibiotics with Zosyn -gentle IV fluid hydration -obtain blood culture Hypertension-will do IV hydralazine p.r.n., resume home meds when able to start p.o. Diabetes mellitus-will do Accu-Cheks Q 6 for now -start gentle IV fluid with lactated Ringer's to D5 LR if hypoglycemia -do insulin sliding scale next DVT prophylaxis subcutaneous Lovenox post surgery Advanced directive- discussed patient is full code
--- NOTE | 2020-02-02 08:53 | P.PN ---
Subjective Date of Service: 02/02/20 Chief Complaint: Nausea vomiting abdominal discomfort Subjective: Improving (Patient had increased abdominal pain and distention, SVT over weekend. Had NG placed, feels much better today, pain minimal, 2+ BM. no CP, SOB) Physical Examination - Vital Signs Temperature: 99.3 F Blood Pressure: 103/66 Pulse: 78 Respirations: 16 Pulse Ox (%): 95 - Physical Exam General: Alert, In no apparent distress, Cooperative HEENT: Mucous membr. moist/pink, Other (NG in place, ) Respiratory: Clear to auscultation bilaterally, Normal air movement Cardiovascular: Normal pulses Gastrointestinal: Other (soft, mininimal TTP, ND, no rebound, no guarding, incisions clean and dry) Neurological: Normal speech Assessment And Plan - Current Problems (Diagnosis) (1) Acute perforated appendicitis Current Visit: Yes Status: Acute Plan: S/P Lapararoscopic appendectomy for perforated appendicitis on 01/29/20 - patient had ileus on pre-op CT, and intra-operatively had distended loops of inflammed SB, now with improving post op ileus - Serial Exams - Continue IV Zosyn - Clamp NG Tube for 6 hours, if tolerated, can DC NG and start clears and advance, likely DC in AM if tolerated - ambulate with assist - lovenox - incentive spriometry - Electrolyte replacment Physician Review: Patient Assessed, Agree with Above Assessment and Plan Physician Review Additional Text: Perforated appendicitis-follow emergency surgical appendectomy -follow planned abdominal washout post appendectomy -surgery discuss with. -will start empirical antibiotics with Zosyn -gentle IV fluid hydration -obtain blood culture Hypertension-will do IV hydralazine p.r.n., resume home meds when able to start p.o. Diabetes mellitus-will do Accu-Cheks Q 6 for now -start gentle IV fluid with lactated Ringer's to D5 LR if hypoglycemia -do insulin sliding scale next DVT prophylaxis subcutaneous Lovenox post surgery Advanced directive- discussed patient is full code
[2020-02-02] MEDS: ENOXAPARIN 40 MG/0.4 ML SQ SCH (09:16)
[2020-02-02] MEDS: KCL 20 MEQ/100 mL IVPB 20 MEQ/100 ML BAG IV SCH ×2 (09:16→11:33)
[2020-02-02] MEDS: NACHLORIDE 0.45% 1,000 ML IV SCH ×2 (09:17→19:00)
[2020-02-02] MEDS: PANTOPRAZOLE 40 MG INJ IVP SCH (09:17)
--- NOTE | 2020-02-02 10:53 | EKG ---
Test Date: 2020-02-01 Test Time: 01:55:51 Envelope Sealer Operator: RT MEASUREMENT RESULTS: Intervals: Rate: 129 SD: QRSD: 100 QT: 316 QTc: 462 [place]: P: SD: QRS: -26 T: 23 INTERPRETIVE STATEMENTS: Accelerated Junctional rhythm with retrograde conduction Septal infarct, age undetermined Abnormal ECG Compared to ECG 01/29/2020 15:34:49 Accelerated junctional rhythm now present Myocardial infarct finding now present Sinus rhythm no longer present Electronically Signed On 02-02-20 10:49:21 CDT by Kevin Christian
[2020-02-02 10:58] VITALS: O2SAT 94
--- NOTE | 2020-02-02 12:18 | P.PN ---
Subjective Date of Service: 02/02/20 (Hospitalist) Chief Complaint: Ileus Patient is doing much better today feels more comfortable has not had further episodes of tachycardia denies any abdominal pain Review of Systems Unremarkable Physical Examination - Vital Signs Temperature: 99.3 F Blood Pressure: 103/66 Pulse: 78 Respirations: 16 Pulse Ox (%): 95 - Physical Exam General: Alert, In no apparent distress, Oriented x3 Respiratory: Clear to auscultation bilaterally Cardiovascular: No edema, Regular rate/rhythm Gastrointestinal: Normal bowel sounds, Soft and benign, Non-distended Assessment & Plan - Problems (Diagnosis) (1) Diabetes mellitus Current Visit: Yes Status: Acute Qualifiers: Diabetes mellitus type: type 2 (2) Ileus following gastrointestinal surgery Current Visit: Yes Status: Acute Plan: Patient admitted there with an ileus following surgeries doing much better now seen by general surgery today and G-tube will be clamped possible discharge tomorrow patient's white count reviewed labs normal mildly hypokalemic borderline temperature Physician Review: Patient Assessed, Agree with Above Assessment and Plan
[2020-02-02] MEDS ORDERED: POTASSIUM 25 MEQ EFFERV TAB PO ONE (20:43)
[2020-02-03] MEDS: PIPER/TAZO/NS 3.375gm 3.375 GM/100 ML BAG IVPB SCH ×2 (00:25→08:02)
[2020-02-03 02:13] VITALS: TEMP 98.7
[2020-02-03] MEDS: NACHLORIDE 0.45% 1,000 ML IV SCH (02:19)
[2020-02-03 04:28] LABS: Hematocrit 39.7 % (39.6-49.0)
[2020-02-03 04:44] LABS: BUN Blood Urea Nitrogen 15 mg/dL (7-18); Bicarbonate 29 mmol/L (21-32); Glucose Level 97 mg/dL (74-106); Potassium 3.9 mmol/L (3.5-5.1); Sodium Level 139 mmol/L (136-145)
[2020-02-03] MEDS ORDERED: POTASSIUM 25 MEQ EFFERV TAB PO ONE (04:48)
[2020-02-03] MEDS: METOPROLOL TAR 25 MG TAB PO SCH (06:22)
[2020-02-03] MEDS: INSULIN -REGULAR HUMAN 50 UNIT/0.5 ML ML SQ SCH (07:30)
--- NOTE | 2020-02-03 07:53 | P.DS ---
Admission Date: 01/30/20 Discharge Date: 02/03/20 Disposition: ROUTINE DISCHARGE Discharge Condition: GOOD Reason for Admission: Ileus - Problems (1) Diabetes mellitus Current Visit: Yes Status: Acute Qualifiers: Diabetes mellitus type: type 2 (2) Ileus following gastrointestinal surgery Current Visit: Yes Status: Acute Brief History of Present Illness: Patient is 49 years of age admitted with abdominal pain micro perforation of the appendix Hospital Course: Patient did undergo laparoscopic appendectomy. Postoperatively developed ileus supraventricular tachycardia the DS from the bowel distension he did much better wants the NG tube was since inserted and his abdomen was decompressed is no evidence of sepsis is treated with IV antibiotics cardiology was also consulted patient to be discharged follow-up with the general surgery Vital Signs/Physical Exam: Temp Pulse Resp BP Pulse Ox 98.7 F 64 18 107/72 94 02/03/20 00:00 02/03/20 06:22 02/03/20 00:00 02/03/20 06:22 02/03/20 00:00 General: Alert, In no apparent distress, Oriented x3 Respiratory: Clear to auscultation bilaterally Cardiovascular: No edema, Regular rate/rhythm Gastrointestinal: Normal bowel sounds, Soft and benign, No tenderness, No rebound Laboratory Data at Discharge: WBC 6.2 K/uL (4.3-10.9) D 02/03/20 03:43 Hgb 13.1 g/dL (13.6-17.9) L 02/03/20 03:43 Hct 39.7 % (39.6-49.0) 02/03/20 03:43 Plt Count 334 K/uL (152-406) 02/03/20 03:43 PT 13.9 SECONDS (9.5-12.5) H 02/01/20 14:15 INR 1.18 02/01/20 14:15 APTT 32.0 SECONDS (24.3-36.9) 02/01/20 14:15 Sodium Cancelled 02/03/20 Unknown Potassium Cancelled 02/03/20 Unknown BUN Cancelled 02/03/20 Unknown Creatinine Cancelled 02/03/20 Unknown Glucose Cancelled 02/03/20 Unknown Magnesium 2.2 mg/dL (1.8-2.4) 02/01/20 04:58 Total Bilirubin 1.4 mg/dL (0.2-1.0) H 01/30/20 05:43 AST 8 U/L (15-37) L 01/30/20 05:43 ALT 26 U/L (12-78) 01/30/20 05:43 Alkaline Phosphatase 92 U/L (45-117) 01/30/20 05:43 Lipase 44 U/L (73-393) L 01/30/20 05:43 Home Medications: NK [No Home Meds] 01/29/20 Patient Discharge Instructions: Discharge instructions on follow-up as per Diet: Regular Activity: No lifting more than 10 lbs Followup: Rafa Yuen MD [ACTIVE - CAN ADMIT] -
[2020-02-03] MEDS: ENOXAPARIN 40 MG/0.4 ML SQ SCH (08:00)
--- NOTE | 2020-02-03 09:30 | ECHO ---
HEIGHT: 5 ft 10 in WEIGHT: 199 lb 3.2 oz DATE OF STUDY: 02/02/[address]: Anton Amaya MD 2-DIMENSIONAL: YES M.MODE: YES DOPPLER: YES COLOR FLOW: YES TDS: NO PORTABLE: NO DEFINITY: NO BUBBLE STUDY: NO DIAGNOSIS: MAT CARDIAC HISTORY: CATHERIZATION: NO SURGERY: NO PROSTHETIC VALVE: NO PACEMAKER: NO MEASUREMENTS (cm) DIASTOLIC (NORMALS) SYSTOLIC (NORMALS) IVSd 0.9 (0.6-1.2) LA Diam 2.7 (1.9-4.0) LVEF 73% LVIDd 4.7 (3.5-5.7) LVIDs 2.7 (2.0-3.5) %FS 42% LVPWd 0.9 (0.6-1.2) Ao Diam 2.8 (2.0-3.7) 2 DIMENSIONAL ASSESSMENT: RIGHT ATRIUM: NORMAL LEFT ATRIUM: NORMAL RIGHT VENTRICLE: NORMAL LEFT VENTRICLE: NORMAL TRICUSPID VALVE: NORMAL MITRAL VALVE: NORMAL PULMONIC VALVE: NORMAL AORTIC VALVE: NORMAL PERICARDIAL EFFUSION: NONE AORTIC ROOT: NORMAL LEFT VENTRICULAR WALL MOTION: NORMAL DOPPLER/COLOR FLOW: NORMAL COMMENTS: NORMAL 2D ECHOCARDIOGRAM WITH DOPPLER. NORMAL LEFT ATRIAL SIZE. NO WALL MOTION ABNORMALITY. NO THROMBUS. TECHNOLOGIST: Lashanda MORALES
[2020-02-03 10:00] VITALS: BP 110/75
--- NOTE | 2020-02-03 20:47 | CON ---
Date of Consultation: 01/31/2020 Reason For Consultation: Tachycardia. History Of Present Illness: This is a 49-year-old male, Indonesian speaking. Apparently, he presented to the emergency room with abdominal pain. He was found to have appendicitis and had a surgical inte rvention and then ended up having an ileus post surgery. However, on telemetry, it was noted that he has a fast heart rate at 140 to 150 beats per minute. Patient was evaluated by bedside and he was c ompletely asymptomatic. He denies having any cardiac history prior to this event. Past Medical History: Hypertension and diabetes. Medications: Refer reconciliation sheet for detailed list. Allergies: NO KNOWN DRUG ALLERGIES. Family History: No premature coronary artery disease or cancer. Social History: Does not smoke or drink. Does not use any drugs. Review of Systems: All systems reviewed. They were negative except above mentioned in the HPI. Physical Examination: Vital Signs: Heart rate is 150, breathing at 18, temperature is 98.7, and saturating 98% on room air . General: Pleasant, middle-aged male, Indonesian speaking, in no apparent distress. Head and Neck: Pupils are equal and reactive to light. Intact eye movements. No JVD. No cervical lymphadenopathy. Neck is supple. Thyroid is not enlarged. Lungs: Clear to auscultation bilaterally. No rhonchi, rales, or crackles. No accessory muscle use. Heart: Regular rate and rhythm, but tachycardic. Abdomen: Soft. Tender diffusely. No rigidity or rebound. Extremities: No edema, clubbing, or cyanosis. Intact pulses. Skin: No rashes. No lesions. Neurologic: Alert, awake, oriented x3. No acute focal deficit appreciated. Investigations: Potassium 3.6, creatinine 0.61, and sodium 137. TSH 1.3. White blood cell count is 10.1. EKG, supraventricular tachycardia. Assessment And Plan: 1.Supraventricular tachycardia. a.I placed the patient on monitor car operator and gave 12 mg of adenosine IV push that broke the suprave ntricular tachycardia to sinus rhythm. b.At this point, I recommend hydration, and if this supraventricular tachycardia returns, recommend to start low-dose beta-smooth if blood pressure tolerates. Also maintain well hydration. c.I recommend to obtain echocardiogram to further evaluate for any structural heart condition. 2.Hypertension. Blood pressure is controlled. Continue current medications. Thank you for the consult. /GEORGI Voice ID: [id number] Report ID: [id number]
--- NOTE | 2020-02-03 23:56 | PN ---
Date of Progress Note: 02/03/2020 Mr. Levin has been seen today on 02/03/2020 because of atrial flutter that occurred on 01/31/2020. The patient has been on metoprolol and Lovenox since then and he is now in sinus rhythm. Patient i s status post laparoscopic appendectomy for perforation of appendix on 01/29/2020. Has had an ileus postoperatively that is resolving. He remains in sinus rhythm. We will continue his metoprolol and Lovenox. No change in therapy for now. We will continue to follow him. ADELA/GEORGI Voice ID: [id number] Report ID: [id number]
--- NOTE | 2020-02-16 05:44 | CON ---
Date of Consultation: 02/01/2020 Reason For Consultation: Nausea, vomiting, coffee-ground emesis. History Of Present Illness: Patient is a 49-year-old male with history of diabetes, hyperte nsion. Patient came to the hospital with abdominal pain, found to have acute appendicitis, underwent appendectomy was on January 29, 2020. KUB today reveals possible early mechanical small-bowel obstruc tion with Gastroccult positive. The patient has nausea, vomiting, coffee-ground emesis, currently in bed. He looked good after nasogastric tube was placed to low intermittent wall suction, feeling well. Past Medical History: Significant for diabetes, hypertension. Medications: At home, medicines. Social History: He is , 4 children. No tobacco. No alcohol. Family History: Father alive and well. Mother with diabetes. Review of Systems: Patient has had midepigastric pain lower abdominal pain, relieved laparoscopic cholecystectomy, appendectomy surgery on January 29, 2020. He now has nausea, vomiting, coffee-ground emesis. Gastroccult positive. The patient feels much better after placing nasogastric tube to low i ntermittent wall suction. He denies any depression, anxiety, chest pain, short of breath seizure, sy ncope, lower extremity muscle aches, joint aches, backaches, melena, hematochezia, hematemesis. He d oes have coffee-ground emesis. No abdominal pain. No fevers, chills, night sweats, lower extremity muscle aches, joint aches, backaches. Physical Examination: Vital Signs: Patient is 5 feet 10 inches, pounds. BMI of 20 kg/sq m. He has a temperatu re of 98.4 degrees Fahrenheit, pulse 89, respirations 18, blood pressure 107/74, O2 saturation 95%. HEENT: Normocephalic, atraumatic. Anicteric. Pupils equal, round, and reactive to light. Extraocu lar muscles intact. Oropharynx clear. Neck: Supple. No masses. Respirations: Clear to auscultation bilaterally. Cardiac: Regular rate and rhythm. Gastrointestinal: Positive bowel sounds. Hyperactive low intermittent wall suction. Mil d tenderness. No peritoneal or Scruggs sign. No rebound. Extremities: No clubbing, cyanosis, or edema. 2+ pulses. Neuro: Alert and oriented x3. Grossly nonfocal. 5/5 motor. Sensation intact to light touch. Laboratory Data: Patient has a white count of 10.2, hemoglobin 14.5, hematocrit 44 and MCV of 85, pl atelet count of 315, polys of 75%, lymphocytes 12%, monocytes 13% eosinophils 0.5%, basophils 0.2%. PT of 13.9, INR of 1.2, PTT 32. Sodium 136, potassium 3.5, chloride 100, bicarb 28, BUN of 14, creat inine of 0.8, glucose 134, lactate 0.8, calcium 8.1, magnesium 2.2. On January 29, patient has total bi lirubin of 1.4, direct bilirubin of 1.4, AST of 8, ALT of 26, alkaline phosphatase 93, total protein 6.7, albumin 3.4, lipase 44. TSH of 1.35. The patient's CT abdomen and pelvis on January 28 reveale d inflammatory change in right lower quadrant suggest perforated appendicitis for which sh e underwent urgent appendectomy on that day. KUB today revealed developing mechanical small-bowel ob struction suspected. Impression: 1.Nausea, vomiting, coffee-ground emesis, possibly secondary to developing mechanical small-bowel ob struction. Gastroccult positive. Patient will need to have Surgery come back and evaluate the patie nt. 2.Appendectomy on January 29, 2020. CT scan revealing appendicitis as well. 3.Possible mechanical small bowel obstruction, status post surgery. Recommendation: 1.Continue IV fluids. 2.Continue NG tube to low intermittent wall suction. 3.PPI therapy. 4.Keep patient n.p.o. 5.Notify Surgery of possible early mechanical small-bowel obstruction. 6.Would also consider EGD after obstruction if postsurgical changes resolve after surgical clearance . ROBERTO CARLOS/SANGEETHAL Voice ID: [id number] Report ID: [id number]
== END 2020-02-03 12:00 | disposition home or self-care (01) | DRG 339 ==
LOC: ER 14:27 → ERHOLD 16:16 → 2ND 19:09 → OBSVTOIN 01-30 10:48 → 3RD-ICU 01-31 10:52 → 2ND 01-31 17:40
PROVIDERS: ADMIT Internal Medicine; ATTEND Internal Medicine Sleep Medicine
PROC: 0DTJ4ZZ Resection of Appendix, Percutaneous Endoscopic Approach (ICD-10-PCS; principal; 2020-01-29 17:30)
DX: K35.32 Acute appendicitis with perforation, localized peritonitis, and gangrene, without abscess (principal); I47.1 Supraventricular tachycardia; K92.2 Gastrointestinal hemorrhage, unspecified; I48.92 Unspecified atrial flutter; K56.7 Ileus, unspecified; I10 Essential (primary) hypertension; E11.9 Type 2 diabetes mellitus without complications; E78.5 Hyperlipidemia, unspecified; R19.5 Other fecal abnormalities; Z87.891 Personal history of nicotine dependence
CPT/HCPCS: 36415; 71045; 74018; 74177; 80048; 80053; 80076; 82271; 82947; 83605; 83690; 83735; 83986; 84132; 84443; 85025; 85027; 85610; 85730; 88304; 93005; 93306; 96361; 96365; 96375; 99285; C9113; G0378; J0153; J0330; J1170; J1650; J2250; J2270; J2405; J2543; J2550; J2704; J2710; J3010; J7030; J7040; J7120; J7799; Q9967